=== PATIENT | male | born 1945 | race Caucasian/White ===

== ENCOUNTER → 2016-08-10 | Outpatient (CLI) | payer MEDICARE ==
[~2016-08-10] MED LIST: CARDURA 2MG TAB2 MG PO; CLOPIDOGREL75 MG PO; CORDARONE 200M200 MG PO; COREG 3.125M3.125 MG PO; CRESTOR40 MG PO; ECOTRIN81 MG PO; ELIQUIS 5 MG TAB5 MG PO; FINASTERIDE5 MG PO; FLOMAX 0.4 MG0.4 MG PO; GLUCOPHAGE500 MG PO; IMDUR ER TAB 3030 MG PO; LASIX20 MG PO; LIPITOR TAB 2020 MG PO; LOVASTATIN20 MG PO; METOPROLOL TART25 MG PO; NITROSTAT0.4 MG SL; NORVASC 5 MG TAB5 MG PO; PLAVIX 75 MG TA75 MG PO; TYLENOL325 MG PO
== END ==
LOC: HEART 5 08:30
DX: I48.0 Paroxysmal atrial fibrillation (principal)

== ENCOUNTER → 2016-09-04 | Outpatient (CLI) | payer MEDICARE | LOC: CARD REHAB 10:00 | DX: I25.10 Atherosclerotic heart disease of native coronary artery without angina pectoris (principal); Z95.1 Presence of aortocoronary bypass graft ==

== ENCOUNTER 2017-02-15 10:38 | Emergency (ER) | payer MEDICARE ==
[2017-02-15 11:40] LABS: HEMOGLOBIN 11.5 gm/dl (14.0-17.5); RED BLOOD COUNT 4.17 M/UL (4.20-5.50); WHITE BLOOD COUNT 5.6 K/UL (4.5-11.0)
== END 2017-02-15 13:00 | disposition home or self-care (01) ==
LOC: ER1 10:38
PROVIDERS: Emergency Medicine
DX: J44.1 Chronic obstructive pulmonary disease with (acute) exacerbation (principal); I10 Essential (primary) hypertension; I25.810 Atherosclerosis of coronary artery bypass graft(s) without angina pectoris; Z95.1 Presence of aortocoronary bypass graft; Z99.81 Dependence on supplemental oxygen; Z87.891 Personal history of nicotine dependence
CPT/HCPCS: 36415; 36600; 71020; 80053; 82803; 83880; 85025; 93005; 96374; 99285; J2930